=== PATIENT | male | born 1950 | race Hispanic/Latino ===

== ENCOUNTER 2021-07-03 09:42 | Observation (INO) | payer OTHER ==
[~2021-07-03] VITALS: Ht 157.5 cm; Wt 55.3 kg
[2021-07-03 10:06] LABS: BASOPHILS % (AUTO) 0.3 % (0.0-5.0); EOSINOPHILS % (AUTO) 0.4 % (0.0-8.0); HEMATOCRIT 39.2 % (42-54); MEAN CORPUSCULAR HGB CONC 33.9 g/dL (32.0-36.0); MEAN CORPUSCULAR VOLUME 85.4 fL (79-99); MONOCYTES % (AUTO) 9.4 % (3.0-13.0); NEUTROPHILS % (AUTO) 74.2 % (40.0-77.0); PLATELET COUNT (AUTO) 425 K/uL (130-400); RED BLOOD CELL COUNT(AUTO) 4.59 MIL/uL (4.50-6.20); RED CELL DISTRIBUTION WIDTH 12.2 % (11.0-15.5); WHITE BLOOD COUNT (AUTO) 17.1 K/uL (4.8-10.8)
[2021-07-03 10:08] LABS: APPEARANCE,URINE Error (CLEAR); BILIRUBIN,URINE Negative (NEGATIVE); COLOR,URINE Yellow (YELLOW); GLUCOSE, URINE (UA) Negative (NEGATIVE); KETONES,URINE Negative (NEGATIVE); LEUKOCYTE ESTERASE ,URINE Trace (NEGATIVE); NITRATE,URINE Negative (NEGATIVE); OCCULT BLOOD,URINE Small (NEGATIVE); PROTEIN,URINE Negative (NEGATIVE)
[2021-07-03 10:15] LABS: BACTERIA,URINE Rare /HPF (None Seen); WBC,URINE 0-1 /HPF (0-1)
[2021-07-03 10:16] LABS: SQUAMOUS EPITHELIAL CELL,UR Few /HPF (0-2)
[2021-07-03 10:19] LABS: ALBUMIN 3.1 g/dL (3.5-5.0); BILIRUBIN,TOTAL 0.4 mg/dL (0.2-1.0); CREATININE 1.9 mg/dL (0.5-1.5); POTASSIUM 4.2 mmol/L (3.5-5.1); TOTAL PROTEIN, SERUM 6.9 g/dL (6.0-8.3)
[2021-07-03 11:02] LABS: CREATININE 1.8 mg/dL (0.5-1.5); POTASSIUM 4.4 mmol/L (3.5-5.1)
[2021-07-03] MEDS ORDERED: CEFTRIAXONE 1G VIAL IVP SCH (12:30)
[2021-07-03] MEDS ORDERED: 0.9%NACL 1000ML 1,000 ML IV ONE (13:00)
[2021-07-03 14:00] LABS: CREATININE,URINE RANDOM 133 mg/dL (30-135); SODIUM,URINE RANDOM 19 mmol/l (40-220)
[2021-07-03] MEDS ORDERED: 0.9%NACL 1000ML 1,000 ML IV SCH (14:00)
[2021-07-03] MEDS ORDERED: POLYETHYLENE GLYCOL 3350 17 GM POWD.PACK PO ONE (14:00)
[2021-07-03] MEDS ORDERED: FAMOTIDINE 20MG TAB PO ONE (14:00)
[2021-07-03] MEDS ORDERED: ALEN70TA80 PO (14:08)
[2021-07-03] MEDS ORDERED: ATOR20TA65 PO (14:08)
[2021-07-03] MEDS ORDERED: LISI10TA24 PO (14:08)
[2021-07-03] MEDS ORDERED: 0.9%NACL 50ML 50 ML IV ONE (14:10)
[2021-07-03] MEDS: ZOSYN 3.375GM +NS 50ML IV SCH (14:16)
[2021-07-03 14:18] LABS: CRP QUANTITATIVE 5.5 mg/L (0.00-9.0); THYROID STIMULATING HORMONE 1.77 uIU/mL (0.36-3.74)
[2021-07-03 15:46] LABS: CREATININE 1.5 mg/dL (0.5-1.5); POTASSIUM 4.6 mmol/L (3.5-5.1)
[2021-07-03] MEDS ORDERED: ACETAMINOPHEN 325 MG TAB PO PRN (19:00)
[2021-07-03] MEDS: HEPARIN 5,000 UNIT VIAL SQ SCH (20:41)
[2021-07-03 22:20] LABS: THYROID STIMULATING HORMONE 1.05 uIU/mL (0.36-3.74); URIC ACID 6.4 mg/dL (2.6-7.2)
[2021-07-03] MEDS ORDERED: NAPROXEN 250 MG TAB PO PRN (22:30)
[2021-07-03 23:00] VITALS: BP 121/67
[2021-07-03] MEDS ORDERED: NAPROXEN 500 MG TABLET PO PRN (23:00)
[2021-07-04] MEDS: ZOSYN 3.375GM +NS 50ML IV SCH (01:17)
[2021-07-04 04:00] VITALS: BP 98/55
[2021-07-04 04:44] LABS: CREATININE 1.1 mg/dL (0.5-1.5); POTASSIUM 4.3 mmol/L (3.5-5.1)
[2021-07-04] MEDS: HEPARIN 5,000 UNIT VIAL SQ SCH (06:04)
[2021-07-04 06:30] LABS: BASOPHILS % (AUTO) 0.6 % (0.0-5.0); EOSINOPHILS % (AUTO) 2.5 % (0.0-8.0); HEMATOCRIT 33.1 % (42-54); LYMPHOCYTES % (AUTO) 26.3 % (21.0-51.0); MEAN CORPUSCULAR HEMOGLOBIN 29.5 pg (27.0-33.0); MEAN CORPUSCULAR HGB CONC 33.2 g/dL (32.0-36.0); MEAN CORPUSCULAR VOLUME 88.7 fL (79-99); MONOCYTES % (AUTO) 10.5 % (3.0-13.0); NEUTROPHILS % (AUTO) 58.1 % (40.0-77.0); PLATELET COUNT (AUTO) 372 K/uL (130-400); RED BLOOD CELL COUNT(AUTO) 3.73 MIL/uL (4.50-6.20); RED CELL DISTRIBUTION WIDTH 12.5 % (11.0-15.5)
[2021-07-04 07:40] VITALS: BP 104/53
[2021-07-04] MEDS ORDERED: POLYETHYLENE GLYCOL 3350 17 GM POWD.PACK PO SCH (09:00)
[2021-07-04] MEDS ORDERED: TAMSULOSIN HCL 0.4 MG CAP.ER.24H PO SCH (09:00)
[2021-07-04] MEDS ORDERED: FINASTERIDE 5 MG TABLET PO SCH (09:00)
[2021-07-04] MEDS ORDERED: FAMOTIDINE 20MG TAB PO ONE (09:00)
[2021-07-04 11:10] VITALS: BP 104/53
[2021-07-04] MEDS ORDERED: TAMS-1 PO (11:37)
[2021-07-04] MEDS ORDERED: FINA5TAB2 PO (11:37)
== END 2021-07-04 13:42 | disposition home or self-care (01) ==
LOC: EDH 09:42 → EDHIP 12:49 → OBSVTOIN 12:49 → UNDOADMOB 12:49 → INTOOBSV 12:49 → EDHIP 13:34 → INTOOBSV 13:34 → OBSVTOIN 13:34 → 4DH 22:22
PROVIDERS: ADMIT Internal Medicine; ATTEND Internal Medicine
DX: N17.9 Acute kidney failure, unspecified (principal); Z20.822 Contact with and (suspected) exposure to COVID-19; R33.9 Retention of urine, unspecified; N13.9 Obstructive and reflux uropathy, unspecified; N41.9 Inflammatory disease of prostate, unspecified; E87.1 Hypo-osmolality and hyponatremia; D72.829 Elevated white blood cell count, unspecified; I10 Essential (primary) hypertension; E78.5 Hyperlipidemia, unspecified; M81.0 Age-related osteoporosis without current pathological fracture; R54 Age-related physical debility; E86.0 Dehydration; E44.0 Moderate protein-calorie malnutrition; E78.00 Pure hypercholesterolemia, unspecified; K59.00 Constipation, unspecified; N13.30 Unspecified hydronephrosis; N40.0 Benign prostatic hyperplasia without lower urinary tract symptoms; Z68.22 Body mass index [BMI] 22.0-22.9, adult; Z79.899 Other long term (current) drug therapy; Z98.890 Other specified postprocedural states
CPT/HCPCS: 36415 ×2; 74176; 80048; 80053; 81001; 82533; 82570; 83735; 84145; 84153; 84300; 84443 ×2; 84550; 85025 ×2; 85651; 86140; 87088; 87635; 96361; 96365; 96366 ×3; 96372 ×2; 96375; 99291; G0378; J0696; J1644 ×2; J2543 ×3